=== PATIENT | male | born 1945 | race Caucasian/White ===

== ENCOUNTER 2021-04-01 14:24 | Emergency (ER) | payer MEDICARE, MEDICAID, SELFPAY ==
--- NOTE | ~2021-04-01 | XR_ITS ---
EXAMINATION: XR ABDOMEN KUB CLINICAL INDICATION: Constipation, question bowel obstruction COMPARISON: None TECHNIQUE: AP view of the abdomen. FINDINGS: Mildly distended gas outlines the stomach. The remainder the bowel pattern is nonobstructing. XR/XR KUB IMPRESSION: Mildly distended air-filled stomach. Otherwise nonobstructive bowel pattern
[2021-04-01 14:55] VITALS: BP 128/65; BP 148/88; PULSE 66; PULSE 72; RESP 16; TEMP 36.8; O2SAT 97; BMI 37.3
--- NOTE | 2021-04-01 15:00 | ED.GENADULT ---
HPI - General Adult General Chief complaint: General Medical Stated complaint: CONSTIPATION Time Seen by Provider: 04/01/21 16:00 Source: patient Mode of arrival: ambulatory Limitations: no limitations History of Present Illness HPI narrative: Patient presents to ED for constipation. Patient denies any abdominal pain, nausea, or vomiting. Patient with last bowel movement 3 days ago. Patient given mild of magneium with no relief. Patient states no chest pain, flank pain, dysuria, hematuria, back pain or shortness of breath. Related Data Allergies Allergy/AdvReac Type Severity Reaction Status Date / Time No Known Allergies Allergy Verified 04/01/21 14:58 Review of Systems Review of Systems: Yes all other systems are reviewed and are negative Constitutional: Constitutional: Reports as per HPI and Reports no additional constitutional complaints Eyes: Eyes: Reports as per HPI and Reports no additional eye complaints ENT: Reports system reviewed and no additional complaints, except as documented and Reports as per HPI Cardiovascular: Cardiovascular: Reports as per HPI and Reports no additional cardiovascular complaints Respiratory: Respiratory: Reports as per HPI and Reports no additional respiratory complaints Gastrointestinal: Gastrointestinal: Reports as per HPI, Reports no additional gastrointestinal complaints and Reports constipation Genitourinary: Genitourinary: Reports no additional male genitourinary complaints and Reports as per HPI Musculoskeletal: Musculoskeletal: Reports no additional musculoskeletal complaints and Reports as per HPI Neurologic: Reports system reviewed and no additional complaints, except as documented and Reports as per HPI Psychiatric: Psychiatric: Reports no additional psychiatric complaints and Reports as per HPI [facility] Past Medical History Medical History (Updated 04/01/21 @ 17:46 by JAVID Dahl) Constipation Dementia Dysphagia GERD (gastroesophageal reflux disease) Heart failure HTN (hypertension) LBBB (left bundle branch block) Muscle weakness TBI (traumatic brain injury) Social History Social History Advance Directives: No Advance Directives Information Provided: No Physical Exam Vital Signs: Vital Signs: Last Vital Signs Temp 98.3 F 04/01/21 14:55 Pulse 72 04/01/21 14:55 Resp 16 04/01/21 14:55 BP 128/65 04/01/21 14:55 Pulse Ox 97 04/01/21 14:55 Body Mass Index 37.3 Const: General: cooperative, healthy appearing, comfortable, no acute distress, well developed, alert, awake and Physically active Orientation/consciousness: patient oriented x3 HENMT: Head: Yes normal to inspection, Yes No palpable skull fracture present, Yes normocephalic, Yes atraumatic and No abrasion Eyes: General: appearance normal, both eyes and all related structures Neck: Neck: Yes normal visual inspection, Yes full ROM, Yes no lymphadenopathy, Yes no meningeal signs, Yes trachea midline, Yes supple and No tender Chest: Chest palpation & inspection: normal inspection of the chest and normal palpation of entire chest wall Resp: Effort & Inspection: normal respiratory effort and able to speak in complete sentences Auscultation: clear to auscultation bilaterally Cardio: Jugular venous distension: no JVD Heart sounds: S1 normal heart sound present and S2 normal heart sound present GI: Other: patient obese, naturally large habitus. Inspection: Yes normal to inspection and No abdominal wall ecchymosis Palpation (GI): Soft to palpation, not firm, nontender, no guarding and not rigid : General: No CVA tenderness and Yes no CVA tenderness Back/Spine/Pelvis: Back: no CVA tenderness, No CVA tenderness and No back tenderness Skin: General skin exam: no rashes or lesions noted and elasticity normal Neuro: General: patient oriented x3, gait normal, no meningeal signs and CN's II-XI intact bilaterally Cranial nerves: Yes CN's II-XII intact bilaterally Extrem: General: Yes normal to inspection and Yes full ROM Psych: Appearance: grossly normal, well kempt and not disheveled Course Course Course Narrative: Patient denies any distress. Patient will have KUB. Reevaluation(s) Reevaluation #1: X-ray negative for obstruction. Patient will be discharged with magnesium citrate. Patient abdomen is nontender and benign on palpation patient is not having any nausea or emesis. Time: 17:43 Medical Decision Making [facility] Narrative Medical decision making narrative: constipation Discharge Plan Discharge Clinical Impression: Constipation Patient Disposition: Home, Self-Care Instructions: Constipation (ED) Additional Instructions: X-ray came back negative for bowel obstruction. You will be discharged with magnesium citrate. Return to the ED for nausea, vomiting, abdominal pain, fever, chills, or any other concerning symptoms. Please follow-up with primary care provider. Print Language: [place]ian
[2021-04-01 19:10] VITALS: BP 151/66; PULSE 78; RESP 18; TEMP 36.6; O2SAT 97
== END 2021-04-01 19:22 | disposition home or self-care (01) ==
PROVIDERS: Emergency Provider Internal Medicine; PCP Internal Medicine
DX: K59.00 Constipation, unspecified (principal); R10.9 Unspecified abdominal pain
CPT/HCPCS: 74018; 99283; 99284